=== PATIENT | male | born 1945 | race Caucasian/White ===

== ENCOUNTER 2017-06-25 06:42 | Day surgery (SDC) | payer MEDICARE, OTHER ==
--- NOTE | 2017-06-24 19:06 | PREOPHP ---
DATE OF ADMISSION: 06/25/2017 HISTORY OF PRESENT ILLNESS: This 71-year-old patient is admitted for elective cataract surgery of the left eye. Patient has had progressive deterioration of vision in both eyes over the past year without prior history of eye disease or injury. This patient's systemic history is positive for a history of stenosis of the right carotid artery, a CVA with hemiplegia, insulin dependent diabetes mellitus, benign systemic hypertension, hyperlipidemia, and chronic kidney disease. CURRENT MEDICATIONS: Includes aspirin and Eliquis (both discontinued on 06/18/2017), finasteride, glipizide, Lipitor, Losartan, NovoLog, pantoprazole, and tamsulosin (discontinued on (06/18/2017). ALLERGIES: PATIENT IS ALLERGIC TO CLINDAMYCIN. PHYSICAL EXAMINATION: EYES: Visual acuity is finger counting vision in both eyes. Slit lamp examination reveals a posterior subcapsular cataract in both eyes with the left eye appearing denser than the right eye. Applanation tonometry is 17 mmHg in both eyes. Examination of the retina is grossly within normal limits. DIAGNOSIS: Posterior subcapsular cataract, left eye. PLAN: Cataract extraction with lens implant, left eye. The risks and alternatives to the surgery have been discussed with the patient and with the conservator and agreement has been reached to proceed with surgery in order to allow for improvement of visual acuity leading to greater ability to perform activities of daily living. Dictated By: Chau Malone MD /[email or web address]/[email or web address] /Document#: [id number]
[~2017-06-25] VITALS: Ht 172.7 cm; Wt 85.0 kg
[2017-06-25] VITALS (8 sets, daily range): BP systolic 151–185; BP diastolic 61–89; PULSE 56–79; RESP 12–22; Ht 172.7 cm; Wt 85.0 kg
[~2017-06-25 06:42] MED LIST: CARBACHOL 0.01% 1.5 ML OPH INJ ONE; CEFAZOLIN 1 GM INJ ONE; CIPROFLOXACIN 0.3% 2.5 ML OPH OPER SCH; CYCLOPENTOLATE/PHENYLEPH 2 ML OPH OPER SCH; DEXAMETHASONE 4 MG/ML 1 ML INJ ONE; DICLOFENAC 0.1% 2.5 ML OPH OPER SCH; EPINEPHrine 1 MG INJ ONE; GENTAMICIN 80 MG INJ ONE; LIDOCAINE 4% (MPF) 5 ML INJ ONE; TROPICAMIDE 1% 3ML OPH OPER SCH
[2017-06-25] MEDS ORDERED: ASPI-664 PO (08:41)
[2017-06-25] MEDS ORDERED: CHOL100062 PO (08:42)
[2017-06-25] MEDS ORDERED: CRAN450C PO (08:42)
[2017-06-25] MEDS ORDERED: APIX5TAB PO (08:43)
[2017-06-25] MEDS ORDERED: DOCU-144 PO (08:43)
[2017-06-25] MEDS ORDERED: FINA5TAB4 PO (08:44)
[2017-06-25] MEDS ORDERED: ATOR20TA38 PO (08:44)
[2017-06-25] MEDS ORDERED: GLIP5TAB13 PO (08:44)
[2017-06-25] MEDS ORDERED: LOSA25TA5 PO (08:45)
[2017-06-25] MEDS ORDERED: NOVO3I SC ×2 (08:46)
[2017-06-25] MEDS ORDERED: OXYC-279 PO (08:47)
[2017-06-25] MEDS ORDERED: PANT20TA2 PO (08:48)
[2017-06-25] MEDS ORDERED: TAMS0.4C2 PO (08:49)
[2017-06-25] MEDS ORDERED: SENN-53 PO (08:49)
[2017-06-25] MEDS ORDERED: INSU300I SQ (08:50)
[2017-06-25] MEDS ORDERED: ACET-2047 PO (08:57)
[2017-06-25] MEDS ORDERED: PROPOFOL 20 ML ONE (10:05)
[2017-06-25] MEDS ORDERED: LIDOCAINE 2% (SDV) 5 ML INJ ONE (10:05)
--- NOTE | 2017-06-25 11:24 | SIPON ---
Date/Time of Note Date/Time of Note DATE: 06/25/17 TIME: 11:22 Operative Report Preoperative Diagnosis cataract os Postoperative Diagnosis same Operation/Procedure Performed cataract surgery Surgeon jennifer scott metallurgical laboratory assistant none Anesthesia: MAC Estimated blood loss: none Transfusion Required none Specimen none Grafts/Implants anterior chamber lens implant Complications retained lens material in vitreous PK SCOTT MD Jun 25, 2017 11:24
[2017-06-25] MEDS ORDERED: DIPHENHYDRAMINE 50 MG INJ IV PRN (11:30)
[2017-06-25] MEDS ORDERED: OXYCODONE/ACETAMINOPHEN (5/325) TAB PO PRN ×2 (11:30)
[2017-06-25] MEDS ORDERED: EPHEDrine SULFATE 50 MG/5 ML SYG IV PRN (11:30)
[2017-06-25] MEDS ORDERED: hydrALAzine 20 MG INJ IV PRN (11:30)
[2017-06-25] MEDS ORDERED: LABETALOL HCL 20MG INJ IV PRN (11:30)
[2017-06-25] MEDS ORDERED: KETOROLAC 30 MG INJ IV PRN (11:30)
[2017-06-25] MEDS ORDERED: FENTAnyl 50 MCG/ML VIAL IV PRN ×3 (11:30)
[2017-06-25] MEDS ORDERED: MEPERIDINE 25 MG INJ IV PRN (11:30)
[2017-06-25] MEDS ORDERED: ONDANSETRON 4 MG INJ IV PRN (11:30)
--- NOTE | 2017-06-25 12:00 | OPR ---
DATE OF OPERATION: 06/25/2017 PREOPERATIVE DIAGNOSIS: Cataract left eye. POSTOPERATIVE DIAGNOSIS: Cataract left eye. PROCEDURE: Cataract extraction with lens implant left eye. SURGEON: Chau Malone MD. ANESTHESIOLOGIST: Dr. Hargrove. DESCRIPTION OF PROCEDURE: Patient brought to the operating room and an eye gurney, positioned appropriately, attached to an electrocardiogram monitor and oxygen saturation monitor. The patient received intravenous sedation and then local anesthesia using lidocaine 4% given in lid block and retrobulbar injection. The patient was then prepped and draped in the usual sterile manner and a speculum was inserted between the lids of the left eye. Two paracentesis incisions were created using a Super blade through a clear cornea in the superotemporal and superonasal quadrants adjacent to the limbus. Following this, using a 3.0 mm keratome, a stepped cornea incision was made at the 12 o'clock position. Through this opening, an irrigating cystotome was introduced into the anterior chamber which was filled with Viscoat. An anterior capsulotomy was then performed. It was noted from preoperative evaluation that the patient was highly nearsighted and therefore it was expected that the anterior chamber would be relatively deep and access to the cataract would be slightly more difficult. Following hydrodissection with balanced salt solution, phacoemulsification was initiated by creating grooves in a quadrant like fashion. While doing this, it was noted that the lens appeared to move slightly further posteriorly, indicating possible lens zonular loss, however, the procedure was continued. Some Viscoat was reinjected into the anterior chamber and then an attempt was made to use a lens cracker to separate the segments of the lens nucleus. After this, an attempt was made to remove the lens nuclear fragments. However, the lens appeared to move posteriorly, indicative of probably break of the posterior capsule or total loss of zonular support during the initial phase of the phacoemulsification. After attempting this for a while, it was decided to convert from the 3 mm incision to a larger incision in order to do an extracapsular cataract extraction. Additional Viscoat was injected into the anterior chamber and then using corneal scissors, the wound was enlarged to approximately 10 mm. A lens loop was then inserted into the anterior chamber and passed around the remaining cataract and an attempt was made to remove the lens en bloc. During this attempt, it was noted that a large portion of the lens were removed, however, some additional lens material moved posteriorly into the vitreous and could not be retrieved. It was decided that rather than attempt to remove further lens remnants, and face the potential risk of damage to the retina that the surgery on the anterior segment would be completed and then patient would be sent for a retinal consultation and probable additional surgical procedure. An anterior vitrectomy was performed until no vitreous was present in the anterior chamber or at the lips of the wound. Following this, a peripheral iridectomy was created superiorly. Provisc was injected into the anterior chamber and a lens glide was inserted. An anterior chamber lens measuring 6.0 diopters (Bausch and Lomb Model L122UV) was then inserted over a lens glide into the anterior chamber. The glide was then removed and then the trailing haptic was tucked beneath the corneal scleral shelf. After this 5 interrupted 10-0 nylon sutures were placed and four of them were tied, following which aspiration to remove the viscoelastic material was performed. The lens was then rotated so that the haptics were oriented in the horizontal meridian with the haptics in the anterior chamber angle. The final nylon suture was then tied. All ends were cut short and the knots were on the scleral side. Following this 0.5 cc of Ancef and 0.5 cc of dexamethasone was injected into the subtenon space in the inferior conjunctival fornix. The speculum was removed. Ciprofloxacin drops placed on the eye and the eye was patched. The patient then left the operating room in satisfactory condition. Dictated By: Chau Malone MD /[email or web address] /Document#: [id number]
== END 2017-06-25 13:07 ==
LOC: SDS 06:42
PROVIDERS: ATTEND Ophthalmology
DX: H26.9 Unspecified cataract (principal); I69.359 Hemiplegia and hemiparesis following cerebral infarction affecting unspecified side; I12.9 Hypertensive chronic kidney disease with stage 1 through stage 4 chronic kidney disease, or unspecified chronic kidney disease; E11.22 Type 2 diabetes mellitus with diabetic chronic kidney disease; N18.9 Chronic kidney disease, unspecified; I25.10 Atherosclerotic heart disease of native coronary artery without angina pectoris; Z79.4 Long term (current) use of insulin; E78.5 Hyperlipidemia, unspecified; Z79.82 Long term (current) use of aspirin; Z79.01 Long term (current) use of anticoagulants; Z88.1 Allergy status to other antibiotic agents
CPT/HCPCS: 66984; 82962; J0171; J0360; J0690; J1100; J1580